=== PATIENT | female | born 1960 | race Caucasian/White ===

== ENCOUNTER → 2021-05-05 12:20 | Outpatient (CLI) | payer MEDICARE, SELFPAY ==
--- NOTE | ~2021-05-05 | MR_ITS ---
EXAMINATION: MR lumbar spine wo [facility] EXAM DATE: 05/05/2021 13:24 INDICATION: Lumbar radicular pain, right hip pain chronic lbp. Right hip pain. TECHNIQUE: Multi-sequential, multiplanar MR images of the lumbar spine were obtained without contrast . Sagittal T1, T2, T2 fat saturation images. Axial T2 weighted images. There is no prior study for comparison. 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 There is moderate disc disease L2-3 and L3-4. There is 3 mm retrolisthesis L4 on L5 and 5 mm anterolisthesi s L5 on S1. Mild to moderate disc disease at these 2 levels. Possible chronic bilateral L5 spondyloly sis. The conus medullaris terminates at the L2 level and has normal signal intensity and morphology. Paraspinal soft tissue is unremarkable. Level by level evaluation: T12-L1: Disc does not extend beyond the endplate margin. Facet arthropathy: Mild bilateral. Neural foraminal stenosis: No stenosis. Central canal stenosis: No stenosis. L1-L2: There is a minimal diffuse disc bulge. Facet arthropathy: Mild bilateral. Neural foraminal stenosis: No stenosis. Central canal stenosis: No stenosis. L2-L3: There is a moderate diffuse disc bulge. Facet arthropathy: Mild to moderate. Neural foraminal stenosis: Mild to moderate left, mild right. Central canal stenosis: Mild to moderate superimposed on congenital. L3-L4: There is a moderate diffuse disc bulge. Facet arthropathy: Moderate. Neural foraminal stenosis: Mild to moderate bilateral. Central canal stenosis: Moderate, minimal CSF surrounding traversing nerve roots. L4-L5: There is a mild to moderate diffuse disc bulge. Facet arthropathy: Moderate . Ligamentum flavum enlargement. Neural foraminal stenosis: Mild to moderate bilateral. Central canal stenosis: Moderate, minimal CSF space. L5-S1: There is a moderate to large diffuse disc bulge. Facet arthropathy: Mild to moderate. Neural foraminal stenosis: Moderate right, mild to moderate left. Central canal stenosis: Mild. IMPRESSION: 1. Overall moderate lumbar spondylosis superimposed on congenitally narrow spinal canal. Reviewed, dictated and finalized at location A. ROLLER IMPRESSION: 1. Overall moderate lumbar spondylosis superimposed on congenitally narrow spi nal canal.
== END ==
PROVIDERS: Visit Provider Physician Assistant
DX: M47.27 Other spondylosis with radiculopathy, lumbosacral region (principal); M25.551 Pain in right hip; M62.838 Other muscle spasm; M70.61 Trochanteric bursitis, right hip; M48.07 Spinal stenosis, lumbosacral region
CPT/HCPCS: 72148

== ENCOUNTER → 2021-06-22 14:21 | Outpatient (CLI) | payer MEDICARE, SELFPAY ==
--- NOTE | ~2021-06-22 | US_ITS ---
EXAMINATION: US soft tissue head and neck DATE: 06/22/2021 14:41 INDICATION: Localized swelling, mass, and lump. TECHNIQUE: Multiple grayscale and Doppler ultrasound images of the neck were obtained. COMPARISON: None FINDINGS: There are normal lymph nodes in the patient's area of concern in left neck. IMPRESSION: 1. No abnormal neck mass or lymphadenopathy in the patient's area of concern. Reviewed, dictated and finalized at location B. DRIVER
== END ==
PROVIDERS: PCP Internal Medicine; Visit Provider Internal Medicine
DX: R22.1 Localized swelling, mass and lump, neck (principal)
CPT/HCPCS: 76536